=== PATIENT | female | born 1965 | race Hispanic/Latino ===

== ENCOUNTER 2017-02-07 12:56 | Emergency (ER) | payer MEDICARE, OTHER ==
[2017-02-07 13:15] VITALS: BMI 36.7
--- NOTE | 2017-02-07 14:27 | ED PDOC ---
Arrival/HPI - General Chief Complaint: Lower Extremity Problem/Injury Time Seen by Provider: 02/07/17 13:45 Historian: Patient - History of Present Illness Narrative History of Present Illness (Text): 02/07/17 14:27 51-year-old female presents today with right foot and right knee pain status post fall 1 week ago. Patient states she has been having continued pain in the right second third and fourth toes as well as the right anterior knee. Patient states she had mechanical fall injuring the anterior aspect of the right knee as well as the foot. Patient states she's been taking Motrin for pain at home with some improvement. Patient states she is able to ambulate with painful gait. No other complaints Time/Duration: 1 week Symptom Course: Unchanged Quality: Aching, Stabbing Severity Level: 4 Past Medical History - Provider Review Nursing Documentation Reviewed: Yes - Travel History Have you recently traveled outside [place] w/in the past 3 mons?: No - Infectious Disease Hx of Infectious Diseases: None - Tetanus Immunization Tetanus Immunization: Unknown - Cardiac Hx [place]: Yes (2005 with stents x2) Hx Hypertension: (pt denies) - Pulmonary Hx Respiratory Disorders: Yes Hx Asthma: Yes Hx Chronic Obstructive Pulmonary Disease (COPD): Yes - Neurological Hx Neurological Disorder: Yes (peripheral neuropathy) - HEENT Hx HEENT Disorder: No - Renal Hx Renal Disorder: No - Endocrine/Metabolic Hx Endocrine Disorders: (diet controlled diabetes) - Hematological/Oncological Hx AIDS: No Hx Blood Transfusions: No Hx Blood Transfusion Reaction: No - Integumentary Other/Comment: left 5th toe swollen red purple, right great toe 2cm round hard callous necrotic in center surrounded by red skin and swelling, multple scars to right leg and hip - Musculoskeletal/Rheumatological Hx Musculoskeletal Disorders: No Hx Falls: No - Gastrointestinal Hx Gastrointestinal Disorders: No - Genitourinary/Gynecological Hx Genitourinary Disorders: No - Psychiatric Hx Depression: No Hx Emotional Abuse: No Hx Physical Abuse: No Hx Substance Use: No - Surgical History Hx Cholecystectomy: Yes Hx Coronary Stent: Yes (2005 x2) Hx Orthopedic Surgery: Yes - Anesthesia Hx Anesthesia: Yes Hx Anesthesia Reactions: No Hx Malignant Hyperthermia: No - Suicidal Assessment Feels Threatened In Home Enviroment: No Family/Social History - Physician Review Nursing Documentation Reviewed: Yes Family/Social History: Unknown Family HX Smoking Status: Heavy Smoker > 10 Cigarettes Daily Hx Alcohol Use: Yes Hx Substance Use: No Hx Substance Use Treatment: No Allergies/Home Meds Allergies/Adverse Reactions: Allergies No Known Allergies Allergy (Verified 08/19/16 14:30) Home Medications: Home Meds Medication Instructions Recorded Confirmed Albuterol HFA [Ventolin HFA 90 0 mg IH DAILY 08/19/16 02/07/17 mcg/actuation (8 g)] Aspirin [Ecotrin] 81 mg PO DAILY 08/19/16 02/07/17 DULoxetine [Cymbalta] 60 mg PO DAILY 08/19/16 02/07/17 Metoprolol Tartrate [Lopressor] 25 mg PO DAILY 08/19/16 02/07/17 Simvastatin [Simvastatin] 5 mg PO DAILY 08/19/16 02/07/17 Varenicline Tartrate [Chantix] 1 cap PO BID 02/07/17 02/07/17 Review of Systems - Review of Systems Constitutional: absent: Fatigue, Fevers Respiratory: absent: SOB, Cough Cardiovascular: absent: Chest Pain, Palpitations Gastrointestinal: absent: Abdominal Pain, Vomiting Musculoskeletal: Arthralgias (right knee, right foot pain). absent: Back Pain, Neck Pain Skin: absent: Rash, Pruritis Neurological: absent: Headache, Dizziness Psychiatric: absent: Anxiety, Depression Physical Exam Vital Signs Reviewed: Yes Vital Signs Temp Pulse Resp BP Pulse Ox 02/07/17 15:00 76 18 119/74 100 02/07/17 13:20 98.3 F 74 18 112/78 97 Temperature: Afebrile Blood Pressure: Normal Pulse: Regular Respiratory Rate: Normal Appearance: Positive for: Well-Appearing, Non-Toxic, Comfortable Pain Distress: None Mental Status: Positive for: Alert and Oriented X 3 - Systems Exam Head: Present: Atraumatic Respiratory/Chest: Present: Clear to Auscultation Cardiovascular: Present: Regular Rate and Rhythm Upper Extremity: Present: Normal ROM Lower Extremity: Present: Normal ROM, Tenderness (right knee; + ecchymosis and tenderness over the anterior aspect of right knee; + edema, full rom of knee with pain; no erythema. right foot; + ttp over 2-4th toes, + minimal ecchymosis ; no edema; full rom; no dorsal foot tenderness. distal pulses intact. cap refill <2. ), Swelling, Capillary Refill < 2 s. No: CALF TENDERNESS Neurological: Present: GCS=15 Skin: Present: Warm, Dry, Normal Color. No: Rashes Psychiatric: Present: Alert, Oriented x 3 Medical Decision Making ED Course and Treatment: 02/07/17 14:30 Patient nontoxic well-appearing in no distress with stable vital signs X-rays of the right knee; ? irregularity to patella on sunrise; fx vs arthritis ? xrays of the right foot; no fracture toradol IM Patient placed in knee immobilizer. pt refused cane or Crutches given for ambulation I discussed all results with patient advised to followup with the orthopedist/ racebook writer within the next 2 days. Return if symptoms worsen persist or new symptoms develop Impression: knee pain, foot pain Motrin every 6 hours as needed for pain Rest, ice, compression, elevation use knee immobilizer Followup with the orthopedist/racebook writer within the next 2 days Followup with primary care physician within the next 2 days Return if symptoms worsen persist or if new symptoms develop - RAD Interpretation Radiology Orders: 02/07/17 14:01 FOOT RIGHT 3 VIEWS ROUTINE [RAD] Stat KNEE W PATELLA RIGHT 3 VIEW [RAD] Stat - Medication Orders Current Medication Orders: Discontinued Medications Ketorolac Tromethamine (Toradol) 60 mg IM STAT STA Stop: 02/07/17 13:46 Last Admin: 02/07/17 13:57 Dose: 60 mg Disposition/Present on Arrival - Present on Arrival Any Indicators Present on Arrival: No History of DVT/PE: No History of Uncontrolled Diabetes: No Urinary Catheter: No History of Decub. Ulcer: No History Surgical Site Infection Following: None - Disposition Have Diagnosis and Disposition been Completed?: Yes Diagnosis: Knee pain, Contusion, toe Disposition: HOME/ ROUTINE Disposition Time: 14:25 Patient Plan: Discharge Patient Problems: Current Active Problems Problem Status Onset Contusion, toe Acute Knee pain Acute Condition: GOOD Discharge Instructions (ExitCare): Knee Pain (ED) Additional Instructions: Motrin every 6 hours as needed for pain Rest, ice, compression, elevation use knee immobilizer Followup with the orthopedist/racebook writer within the next 2 days Followup with primary care physician within the next 2 days Return if symptoms worsen persist or if new symptoms develop Referrals: Markel Thompson DPM [Staff Provider] - Follow up with primary Kiko Storey MD [Staff Provider] - Follow up with primary
[2017-02-07 16:51] VITALS: BP 121/82; PULSE 75; RESP 20; TEMP 98; O2SAT 97
--- NOTE | 2017-02-07 17:04 | RAD ---
PROCEDURE: Right Knee Radiographs. HISTORY: fall 1 week ago; anterior knee pain COMPARISON: None. FINDINGS: BONES: No acute fracture. Old healed fracture proximal tibial and fibular diaphyses. JOINTS: Patellofemoral osteoarthritis. Medial and lateral compartments are grossly preserved. JOINT EFFUSION: None. OTHER FINDINGS: None. IMPRESSION: No acute fracture.
--- NOTE | 2017-02-07 17:07 | RAD ---
PROCEDURE: Right Foot Radiographs. HISTORY: fall, pain 2-4th toes COMPARISON: 09/27/2013 FINDINGS: BONES: No acute fracture. Old osteotomy distal aspect 1st proximal phalanx and distal aspect 2nd proximal phalanx. JOINTS: Normal. SOFT TISSUES: Normal. OTHER FINDINGS: None. IMPRESSION: No acute fracture. Old osteotomies as noted above.
== END 2017-02-07 16:53 | disposition home or self-care (01) ==
LOC: ED 12:56
DX: M25.561 Pain in right knee (principal); S90.121A Contusion of right lesser toe(s) without damage to nail, initial encounter; W18.30XA Fall on same level, unspecified, initial encounter
CPT/HCPCS: 73562; 73630; 96372; 99285; J1885